=== PATIENT | male | born 1990 | race Caucasian/White ===

== ENCOUNTER 2018-05-23 20:11 | Emergency (ER) | payer SELFPAY ==
[2018-05-23 20:47] VITALS: BP 135/93
--- NOTE | 2018-05-23 20:51 | UC ---
Throat Pain/Nasal Gen HPI - HPI Summary HPI Summary: 28 yo male presents with worsening dysphagia over the last 2 months. He tells me that initially intermittently he would be eating or drinking anything and would get bolus to the back of his throat and have the sensation that he could not swallow it and that he was going to choke - so he would spit it back out. This has been increasingly more constant over the last week. Today he could not eat or drink anything. He tried eating soup for lunch and could not swallow it. He has tried drinking water, but cannot swallow that either. Denies fever, chills, sore throat, pain, SOB, chest pain, abdominal pain, n/v - History of Current Complaint Chief Complaint: UCGeneralIllness Stated Complaint: SORE THROAT Time Seen by Provider: 05/23/18 20:51 Hx Obtained From: Patient Onset/Duration: Gradual Onset Pain Intensity: 0 Pain Scale Used: 0-10 Numeric - Allergies/Home Medications Allergies/Adverse Reactions: Allergies Allergy/AdvReac Type Severity Reaction Status Date / Time TOPICAL ACNE MEDS Allergy Severe Hives Uncoded 05/23/18 20:48 PMH/Surg Hx/FS Hx/Imm Hx - Additional Past Medical History Additional PMH: None - Surgical History Surgical History: None - Family History Known Family History: Positive: None, Cardiac Disease - Maternal Grandmother [place] at age 48, Diabetes, Other - cancer - Social History Occupation: Employed Full-time Lives: With Family Alcohol Use: Rare Substance Use Type: None Smoking Status (MU): Never Smoked Tobacco - Immunization History Most Recent Influenza Vaccination: a few years Most Recent Tetanus Shot: 260 Review of Systems Constitutional: Negative Skin: Negative Eyes: Negative ENT: Negative Respiratory: Negative Cardiovascular: Negative Gastrointestinal: Other - Dysphagia Genitourinary: Negative Neurovascular: Negative Neurological: Negative Psychological: Negative All Other Systems Reviewed And Are Negative: Yes Physical Exam - Summary Physical Exam Summary: GENERAL: Mildly anxious SKIN: No rashes, sores, lesions, or open wounds. HEENT: Throat: Posterior oropharynx without exudates, erythema, or tonsillar enlargement. Uvula midline. NECK: Supple. Nontender. No lymphadenopathy. CHEST: CTAB. No r/r/w. No accessory muscle use. Breathing comfortably and in no distress. CV: RRR. Without m/r/g. Pulses intact. Brisk cap refill. ABDOMEN: Soft. NTTP. No distention or guarding. No CVA tenderness. Bowel sounds present NEURO: Alert. CN II-XII grossly intact. PSYCH: Age appropriate behavior. Triage Information Reviewed: Yes Vital Signs: Initial Vital Signs Temp 98.1 F 05/23/18 20:42 Pulse 55 05/23/18 20:42 Resp 16 05/23/18 20:42 BP 135/93 05/23/18 20:42 Pulse Ox 100 05/23/18 20:42 Vital Signs Reviewed: Yes Throat Pain/Nasal Course/Dx - Course Course Of Treatment: Pt was given water in the clinical course and was unable to swallow it. Given his inability to tolerate po, I have advised him to go to the ED for further evaluation. Pt was agreeable to this. - Differential Dx/Diagnosis Provider Diagnoses: Dysphagia Discharge - Sign-Out/Discharge Documenting (check all that apply): Patient Departure - Discharge Plan Condition: Stable Disposition: HOME-RECOMMEND TO ED Referrals: No Primary Care Phys,NOPCP [Primary Care Provider] - Additional Instructions: Please go to the ER for further evaluation of your dysphagia - Billing Disposition and Condition Condition: STABLE Disposition: Home-Recommend to ED
== END 2018-05-23 21:03 | disposition home health service (06) ==
LOC: UCEAST 20:11
DX: R13.10 Dysphagia, unspecified (principal); Z82.49 Family history of ischemic heart disease and other diseases of the circulatory system; Z83.3 Family history of diabetes mellitus; Z80.9 Family history of malignant neoplasm, unspecified
CPT/HCPCS: 99212; G0463

== ENCOUNTER 2018-05-23 21:22 | Emergency (ER) | payer SELFPAY ==
[2018-05-24 01:15] LABS: ABS Basophils 0.1 10^3/ul (0-0.2); ABS Eosinophils 0.4 10^3/ul (0-0.6); ABS Lymphocytes 3.3 10^3/ul (1.0-4.8); ABS Monocytes 0.4 10^3/ul (0-0.8); ABS Neutrophils 3.1 10^3/ul (1.5-7.7); ABS Nucleated RBC 0 10^3/ul; Eosinophil % 6.1 % (0-6); Hematocrit 43 % (42-52); Mean Corpuscular HGB Conc 33 g/dl (31-36); Mean Corpuscular Hemoglobin 26 pg (27-31); Mean Corpuscular Volume 78 fL (80-94); Mean Platelet Volume 8.4 um3 (7.4-10.4); Nucleated Red Blood Cells % 0.1; Platelet Count 270 10^3/ul (150-450); Red Blood Count 5.48 10^6/ul (4.00-5.40); Red Cell Distribution Width 14 % (10.5-15); White Blood Count 7.4 10^3/ul (3.5-10.8)
--- NOTE | 2018-05-24 01:16 | ED ---
Throat Pain/Nasal Congestion - HPI Summary HPI Summary: This is scribe Blanca Cardona documenting for attending Dr. Gumaro Laboy MD. Pt is a 28 year old M with a chief complaint of not being able to swallow. When it first started around 2 months ago there was no pain and it was more like he wasnt producing enough saliva. Last time he ate was this morning around 7 am when he had blueberries, cantaloupe. He choked on some soup later in the day, said it would not go down. The food goes to the back of the mouth and then he cant get it down. He took one sip of water at [facility] and it hurt too much to swallow. The patient says he has some trouble sleeping, and that he feels like he has SOB when he sleeps. He has no pain currently, his throat does not feel like it is closing, and was fine with eating and drinking yesterday. He also said he has no medical history, and is otherwise perfectly healthy. I, Dr. Laboy, personally performed the services described in this documentation as scribed in my presence and it is both accurate and complete. - History of Current Complaint Chief Complaint: EDGeneral Time Seen by Provider: 05/24/18 01:06 Hx Obtained From: Patient Onset/Duration: Sudden Onset, Lasting Weeks - over 2 months, worse today, Still Present Severity: Severe Associated Signs And Symptoms: Positive: Dysphagia - Allergies/Home Medications Allergies/Adverse Reactions: Allergies Allergy/AdvReac Type Severity Reaction Status Date / Time TOPICAL ACNE MEDS Allergy Severe Hives Uncoded 05/23/18 20:48 PMH/Surg Hx/FS Hx/Imm Hx Previously Healthy: Yes Endocrine/Hematology History: Denies: Hx Diabetes, Hx Thyroid Disease Cardiovascular History: Denies: Hx Hypertension Respiratory History: Denies: Hx Asthma, Hx Chronic Obstructive Pulmonary Disease (COPD) GI History: Denies: Hx Ulcer Infectious Disease History: No Infectious Disease History: Denies: Hx Clostridium Difficile, Hx Hepatitis, Hx Human Immunodeficiency Virus (HIV), Hx of Known/Suspected MRSA, Hx Shingles, Hx Tuberculosis, Hx Known/ Suspected VRE, Hx Known/Suspected VRSA, History Other Infectious Disease, Traveled Outside the [place] in Last 30 Days - Family History Known Family History: Positive: Cardiac Disease - Maternal Grandmother [place] at age 48, Diabetes, Other - cancer - Social History Lives: With Family Alcohol Use: Rare Hx Substance Use: No Substance Use Type: Reports: None Hx Tobacco Use: No Smoking Status (MU): Never Smoked Tobacco Review of Systems Negative: Fever Positive: Other - pain with swallowing All Other Systems Reviewed And Are Negative: Yes Physical Exam - Summary Physical Exam Summary: Appearance: Well-appearing, Well-nourished, lying in bed comfortably Skin: Warm, dry, no obvious rash Eyes: sclera anicteric, no conjunctival pallor ENT: mucous membranes moist, oropharynx appears normal, no erythema Neck: Supple, nontender Respiratory: Clear to auscultation, no signs of respiratory distress Cardiovascular: Normal S1, S2. No murmurs. Normal distal pulses in tibial and radial bilaterally. Abdomen: Soft, nontender, normal active bowel sounds present Musculoskeletal: Normal, Strength/ROM Intact Neurological: A&Ox3, awake and alert, mentation is normal, speech is fluent and appropriate Psychiatric: affect is normal, does not appear anxious or depressed Triage Information Reviewed: Yes Vital Signs On Initial Exam: Initial Vitals Temp Pulse Resp BP Pulse Ox 98.6 F 50 16 136/75 96 05/23/18 21:25 05/23/18 21:25 05/23/18 21:25 05/23/18 21:25 05/23/18 21:25 Vital Signs Reviewed: Yes Diagnostics - Vital Signs Vital Signs Temp Pulse Resp BP Pulse Ox 05/24/18 00:59 97.6 F 50 16 125/70 100 05/23/18 22:58 97.6 F 54 16 124/73 100 05/23/18 21:25 98.6 F 50 16 136/75 96 - Laboratory Result Diagrams: 05/24/18 01:04 05/24/18 01:04 Lab Statement: Any lab studies that have been ordered have been reviewed, and results considered in the medical decision making process. EENT Course/Dx - Course Course Of Treatment: 28-year-old man with a somewhat odd presentation of dysphasia. He has a sense that he cannot get any liquids or solids past the base of his tongue into his retropharynx. I attempted to visualize the area with a kaleidoscope, but was unable to get a very good luck with topical anesthetic. However after this, he seemed better and was able to swallow water without any apparent difficulty. His neck muscles seem to elevate normally during swallowing. I think he can be maintained on clear liquid diet over the weekend and asked him to contact the office of the ENT on-call first thing Saturday, as I think he will need further evaluation of the swelling, probably a fiberoptic's to start. - Diagnoses Provider Diagnoses: Dysphasia Discharge - Sign-Out/Discharge Documenting (check all that apply): Patient Departure - DC - Discharge Plan Condition: Good Disposition: HOME Patient Education Materials: Dysphagia (ED) Referrals: No Primary Care Phys,NOPCP [Primary Care Provider] - Sreekanth Alejandre MD [Medical Doctor] - Additional Instructions: Contact Dr. Alejandre's office first thing Saturday and explain your problem and that you were referred there by the ER. In the meantime stick to clear liquids, nothing solid, only liquids you can see through.
[2018-05-24] MEDS ORDERED: Benzocaine/Butamben/Tetracain* SPRAY TOPICAL ONE (01:17)
[2018-05-24] MEDS ORDERED: Benzocaine/Butamben/Tetracain (CETACAINE - SINGLE USE) 5 gm TOPICAL ONE (01:30)
[2018-05-24 01:32] LABS: EGFR Non-African American 75.5 (>60)
[2018-05-24 02:57] VITALS: BP 136/75
== END 2018-05-24 02:56 | disposition home or self-care (01) ==
LOC: ED 21:22
DX: R13.10 Dysphagia, unspecified (principal); Z88.8 Allergy status to other drugs, medicaments and biological substances; Z82.49 Family history of ischemic heart disease and other diseases of the circulatory system; Z83.3 Family history of diabetes mellitus; Z80.9 Family history of malignant neoplasm, unspecified
CPT/HCPCS: 36415; 80053; 83605; 83735; 85025; A9270-GY

== ENCOUNTER → 2018-10-25 01:54 | Emergency (ER) | payer MEDICAID ==
[~2018-10-25 01:54] MED LIST: ALPRAZolam TAB* 0.5 MG ONE; ALPRAZolam TAB* 0.5 MG PO ONE; LORazepam INJ* 2 MG/ML 1 ML VIAL IM ONE
[2018-10-25 02:54] LABS: ABS Basophils 0.2 10^3/ul (0-0.2); ABS Eosinophils 0.3 10^3/ul (0-0.6); ABS Lymphocytes 2.8 10^3/ul (1.0-4.8); ABS Monocytes 0.5 10^3/ul (0-0.8); ABS Neutrophils 3.4 10^3/ul (1.5-7.7); ABS Nucleated RBC 0 10^3/ul; Eosinophil % 3.9 %; Hematocrit 45 % (42-52); Hemoglobin 14.8 g/dl (14.0-18.0); Lymphocyte % 39.1 %; Mean Corpuscular HGB Conc 33 g/dl (31-36); Mean Corpuscular Hemoglobin 26 pg (27-31); Mean Corpuscular Volume 78 fL (80-94); Mean Platelet Volume 8.6 fL (7.4-10.4); Nucleated Red Blood Cells % 0.1; Platelet Count 277 10^3/ul (150-450); Red Blood Count 5.69 10^6/ul (4.00-5.40); Red Cell Distribution Width 13 % (10.5-15); White Blood Count 7.2 10^3/ul (3.5-10.8)
[2018-10-25 03:08] LABS: Activated Partial Thrombo Time 28.8 seconds (26.0-36.3); INR 0.93 (0.77-1.02)
[2018-10-25 03:10] LABS: Albumin 4.5 g/dL (3.2-5.2); Albumin/Globulin Ratio 1.2 (1-3); BUN/Creatinine Ratio 12.9 (8-20); Calcium 10.1 mg/dL (8.6-10.3); EGFR Non-African American 65.1 (>60); Globulin 3.7 g/dL (2-4); Total Bilirubin 0.4 mg/dL (0.2-1.0); Total Protein 8.2 g/dL (6.4-8.9)
[2018-10-25 03:31] LABS: Potassium 3.8 mmol/L (3.5-5.0)
[2018-10-25 03:36] LABS: TSH (Thyroid Stimulating Horm) 8.05 mcIU/mL (0.34-5.60)
[2018-10-25 06:09] VITALS: BP 132/74
--- NOTE | 2018-10-25 12:47 | ED ---
Syncope/Near Syncope - HPI Summary HPI Summary: A 28 y/o male accompanied by a friend presents to the ED c/o syncopal episode. Currently, the patient feels fine. According to the patient, he is not exactly sure what happened. He stated that he thinks he had a panic attack in his car. 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 He stated that he was on his way home when he just started feeling "crazy", as his heart started beating fast, he was shaking, and he fainted. As per friend, she stated that she saw everything. She noted that the patient wasn't feeling too great, so they pulled off at a nearby gas station and she ended up driving. On the way home, he noted that had passed out, started shaking, coupled with a fast hear beat. He was unconscious for a couple seconds. He had something similar 2 years ago, but it was not as severe. Patient is on no medications. - History Of Current Complaint Chief Complaint: EDSyncope Time Seen by Provider: 10/25/18 02:08 Hx Obtained From: Patient Onset/Duration: Sudden Onset Timing: Seconds - seconds Context: Witnessed Activity At Onset: At Rest Associated Head Trauma: No Aggravating Factor(s): Nothing Alleviating Factor(s): Nothing Associated Signs And Symptoms: Other - FAST HR AND SHAKING - Allergies/Home Medications Allergies/Adverse Reactions: Allergies Allergy/AdvReac Type Severity Reaction Status Date / Time TOPICAL ACNE MEDS Allergy Severe Hives Uncoded 10/25/18 02:01 PMH/Surg Hx/FS Hx/Imm Hx Endocrine/Hematology History: Denies: Hx Diabetes, Hx Thyroid Disease Cardiovascular History: Denies: Hx Hypertension Respiratory History: Denies: Hx Asthma, Hx Chronic Obstructive Pulmonary Disease (COPD) GI History: Denies: Hx Ulcer - Surgical History Surgery Procedure, Year, and Place: none Infectious Disease History: No Infectious Disease History: Denies: Hx Clostridium Difficile, Hx Hepatitis, Hx Human Immunodeficiency Virus (HIV), Hx of Known/Suspected MRSA, Hx Shingles, Hx Tuberculosis, Hx Known/ Suspected VRE, Hx Known/Suspected VRSA, History Other Infectious Disease, Traveled Outside the [place] in Last 30 Days - Family History Known Family History: Positive: Cardiac Disease - Maternal Grandmother [place] at age 48, Diabetes, Other - cancer - Social History Alcohol Use: Rare Hx Substance Use: No Substance Use Type: Reports: None Hx Tobacco Use: No Smoking Status (MU): Never Smoked Tobacco Review of Systems Negative: Fever Positive: Syncope All Other Systems Reviewed And Are Negative: Yes Physical Exam - Summary Physical Exam Summary: VITAL SIGNS: Reviewed. GENERAL: Patient is a well-developed and nourished male who is lying comfortable in the stretcher. Patient is not in any acute respiratory distress. HEAD AND FACE: No signs of trauma. No ecchymosis, hematomas or skull depressions. No sinus tenderness. EYES: PERRLA, EOMI x 2, No injected conjunctiva, no nystagmus. EARS: Hearing grossly intact. Ear canals and tympanic membranes are within normal limits. MOUTH: Oropharynx within normal limits. NECK: Supple, trachea is midline, no adenopathy, no JVD, no carotid bruit, no c- spine tenderness, neck with full ROM. CHEST: Symmetric, no tenderness at palpation LUNGS: Clear to auscultation bilaterally. No wheezing or crackles. CVS: Regular rate and rhythm, S1 and S2 present, no murmurs or gallops appreciated. ABDOMEN: Soft, non-tender. No signs of distention. No rebound no guarding, and no masses palpated. Bowel sounds are normal. EXTREMITIES: FROM in all major joints, no edema, no cyanosis or clubbing. NEURO: Alert and oriented x 3. No acute neurological deficits. Speech is normal and follows commands. SKIN: Dry and warm PSYCH: Anxious Triage Information Reviewed: Yes Vital Signs On Initial Exam: Initial Vitals Temp Pulse Resp BP Pulse Ox 98.3 F 70 18 153/84 97 10/25/18 01:57 10/25/18 01:57 10/25/18 01:57 10/25/18 01:57 10/25/18 01:57 Vital Signs Reviewed: Yes Diagnostics - Vital Signs Vital Signs Temp Pulse Resp BP Pulse Ox 10/25/18 01:57 98.3 F 70 18 153/84 97 - Laboratory Result Diagrams: 10/25/18 02:25 10/25/18 02:25 Lab Statement: Any lab studies that have been ordered have been reviewed, and results considered in the medical decision making process. - EKG 0229 Cardiac Rate: NL - 66 BPM EKG Rhythm: Sinus Rhythm - 66 BPM Summary of EKG Findings: J-point elevation. Course/Dx Course Of Treatment: A 28 y/o male accompanied by a friend presents to the ED c/ o syncopal episode. Physical examination findings significant for patient is anxious. An EKG revealed NSR of 66 BPM, J-point elevation. No significant laboratory abnormalities were found. In the ED course, the patient received Xanax and Ativan. Patient will be discharged with a diagnosis of palpitations and anxiety. Patient is to follow up with primary care provider in 1-2 days. Patient is to return to the ED for any new or worsening symptoms. Patient is agreeable with this plan. - Diagnoses Provider Diagnoses: Palpitations, Anxiety Discharge - Sign-Out/Discharge Documenting (check all that apply): Patient Departure - DISCHARGE - Discharge Plan Condition: Stable Disposition: HOME Prescriptions: ALPRAZolam TAB* [Xanax TAB*] 0.5 mg PO BID PRN #10 tab MDD 2 PRN Reason: Anxiety Patient Education Materials: Heart Palpitations (ED), Anxiety (ED) Forms: *Work Release Referrals: [facility] [Outside] - 2 Days Care [facility] [Outside] - 2 Days Additional Instructions: FOLLOW UP WITH PRIMARY CARE PROVIDER IN 1-2 DAYS. RETURN TO ED FOR ANY NEW OR WORSENING SYMPTOMS. - Attestation Statements Document Initiated by Matildeibe: Yes Documenting Scribe: Crispin Cantrell Provider For Whom Julio Cesar is Documenting (Include Credential): Erika Glover MD Scribe Attestation: Crispin Ascencio, scribed for Erika Glover MD on 10/25/18 at 0408. Status of Scribe Document: Ready
--- OUTSIDE RECORDS SUMMARY | 2018-11-03 10:02 | XMS REPORT | Continuity of Care Document ---
:1990 External Reference #:[id number] Author Name Paulina Epstein Care Team Providers Name Role Phone Fabiano Chung MD Care Team Information [employer] Supervisor Unavailable Payers Type Date Identification Numbers Payment Provider Subscriber Group Name: 1 1 Medicaid [place] PayID: [id number] [address] [place] [address] Advance Directives Description No Information Available Problems Date Description Provider Status Onset: 10/17/2015 Sprain of unspecified ligament of right Fnu MD Darrell Active ankle, subsequent encounter Onset: 10/28/2018 Anxiety state Fabiano Chung MD Active Onset: 10/28/2018 Hypothyroidism Fabiano Chung MD Active Onset: 11/10/2015 Sprain of other ligament of right ankle, Fnu MD Darrell Active subsequent encounter Family History Date Family Member(s) Problem(s) Comments General No Current Problems Social History Type Date Description Comments Sex Unknown 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 No Active 10/17/19 Hx Unknown Medications 16 - 10/28/19 19 Immunizations Description No Information Available Vital Signs Date Vital Result Comment 10/28/2018 2:26pm Height 75 inches 6'3" Weight 221.00 lb Heart Rate 62 /min BP Systolic 128 mmHg BP Diastolic 84 mmHg Respiratory Rate 16 /min Body Temperature 98.2 F Pain Level 0 O2 % BldC Oximetry 98 % BMI (Body Mass Index) 27.6 kg/m2 12/01/2015 1:47pm Weight 252.00 lb Heart Rate 80 /min BP Systolic Sitting 128 mmHg BP Diastolic Sitting 88 mmHg 11/10/2015 1:41pm Height 74 inches 6'2" Weight 260.00 lb Heart Rate 74 /min BP Systolic Sitting 122 mmHg BP Diastolic Sitting 86 mmHg BMI (Body Mass Index) 33.4 kg/m2 10/17/2015 2:25pm Height 74 inches 6'2" Weight 260.00 lb Heart Rate 76 /min BP Systolic Sitting 128 mmHg BP Diastolic Sitting 88 mmHg BMI (Body Mass Index) 33.4 kg/m2 Results Description No Information Available Procedures Description No Information Available Encounters Description No Information Available Plan of Treatment Future Appointment(s):10/30/2018 9:20 am - [facility]2018 - Fabiano Chung [id number] Hypothyroidism, unspecifiedComments :We will repeat thyroid studies in a few weeks.F41.9 Anxiety disorder, unspecifiedComments:Continue the xanax as needed. Follow-up as needed.
--- OUTSIDE RECORDS SUMMARY | 2018-11-03 10:02 | XMS REPORT | Continuity of Care Document ---
:1990 External Reference #:[id number] Author Name Alana Elkins Care Team Providers Name Role Phone Fabiano Chung MD Care Team Information [employer] Taper Unavailable Payers Type Date Identification Numbers Payment Provider Subscriber Group Name: 1 1 Medicaid [place] PayID: [id number] [address] [place] [address] Advance Directives Description No Information Available Problems [...] 9:20 am - Fabiano Chung MD at [facility]10/28/2018 - Fabiano Chung [id number] Hypothyroidism, unspecifiedComments :We will repeat thyroid studies in a few weeks.F41.9 Anxiety disorder, unspecifiedComments:Continue the xanax as needed. Follow-up as needed.
== END | disposition home or self-care (01) ==
LOC: ED 01:54
DX: R00.2 Palpitations (principal); F41.9 Anxiety disorder, unspecified
CPT/HCPCS: 36415; 80053; 83735; 84443; 84484; 85025; 85610; 85730; 93005; 96372; 99283; A9270-GY

== ENCOUNTER 2018-10-26 17:55 | Emergency (ER) | payer MEDICAID ==
[2018-10-26 18:02] VITALS: BP 158/96
--- NOTE | 2018-10-26 18:38 | UC ---
Cardiac HPI - HPI Summary HPI Summary: The patient is a 28-year-old male that states that he has had panic attacks or anxiety attacks for the past year. He describes episodes of carpal pedal spasm as well as perioral paresthesias. During these episodes he has palpitations. He states that yesterday he had a severe panic attack and may have passed out. States his heart was racing and he felt short of breath. He states he was taken to the emergency room and there was evaluated. He was given prescription for Xanax and given an appointment to be rechecked on Saturday. He has not taken any Xanax. He stated that yesterday he was having such severe tremors that he thought he was having a seizure. All this morning his had some vague mild chest discomfort as well as left trapezius pain and tenderness. He states that he was told to get rechecked if he developed any neck or shoulder pain. He elected to come in here tonight just to make sure everything was okay. - History of Current Complaint Chief Complaint: UCChestPain Stated Complaint: CHEST PAIN Time Seen by Provider: 10/26/18 17:57 Hx Obtained From: Patient Onset/Duration: Gradual Onset, Lasting Hours Timing: Constant Initial Severity: Mild Current Severity: Mild Pain Intensity: 3 Chest Pain Location: Discrete at: - across chest and left trapezius Character: Dull/Aching Aggravating Factor(s): Movement - moving neck or using left arm cause discomfort Alleviating Factor(s): Nothing Associated Signs & Symptoms: Positive: Chest Pain, Anxiety, Palpitations - yesterday. Negative: Vision Changes, Recent Stress, Headaches, Numbness, Tingling, Weakness, Dizziness, SOB, Swelling, Syncope, Fever, Diaphoresis, Nausea/Vomiting, Cough, Hemoptysis, Back Pain, Abdominal Pain, Calf Pain/ Swelling - Allergy/Home Medications Allergies/Adverse Reactions: Allergies Allergy/AdvReac Type Severity Reaction Status Date / Time TOPICAL ACNE MEDS Allergy Severe Hives Uncoded 10/25/18 02:01 PMH/Surg Hx/FS Hx/Imm Hx Previously Healthy: Yes - Surgical History Surgical History: None Surgery Procedure, Year, and Place: none - Family History Known Family History: Positive: Cardiac Disease - Maternal Grandmother [place] at age 48, Diabetes, Respiratory Disease, Other - cancer - Social History Alcohol Use: None Substance Use Type: Marijuana - rare Smoking Status (MU): Never Smoked Tobacco - Immunization History Most Recent Influenza Vaccination: a few years Most Recent Tetanus Shot: 260 Review of Systems All Other Systems Reviewed And Are Negative: Yes Constitutional: Positive: Negative Skin: Positive: Negative Eyes: Positive: Negative ENT: Positive: Negative Respiratory: Positive: Negative Cardiovascular: Positive: Chest Pain Gastrointestinal: Positive: Negative Genitourinary: Positive: Negative Motor: Positive: Negative Neurovascular: Positive: Negative Musculoskeletal: Positive: Myalgia Neurological: Positive: Negative Psychological: Positive: Negative Physical Exam Triage Information Reviewed: Yes Appearance: Well-Appearing, No Pain Distress, Well-Nourished Vital Signs: Initial Vital Signs Temp 98.6 F 10/26/18 17:56 Pulse 68 10/26/18 17:56 Resp 18 10/26/18 17:56 BP 158/96 10/26/18 17:56 Pulse Ox 99 10/26/18 17:56 Vital Signs Reviewed: Yes Eyes: Positive: Conjunctiva Clear ENT: Positive: Hearing grossly normal, Uvula midline. Negative: Nasal congestion, Nasal drainage, Tonsillar swelling, Tonsillar exudate, Trismus, Muffled voice, Hoarse voice Dental Exam: Normal Neck: Positive: Supple, Nontender, No Lymphadenopathy, Other: - no thyromegaly Respiratory: Positive: Lungs clear, Normal breath sounds, No respiratory distress, No accessory muscle use Cardiovascular: Positive: RRR, No Murmur, Pulses Normal Abdominal Exam: Normal Bowel Sounds: Positive: Present Musculoskeletal: Positive: Strength Intact, ROM Intact, No Edema Neurological: Positive: Alert, Muscle Tone Normal Psychological Exam: Normal Skin Exam: Normal Diagnostics - EKG Cardiac Rate: NL Cardiac Rhythm: Sinus: Normal Ectopy: None ST Segment: Non-Specific - j point elevation EKG Comparison: No Significant Change - Clinical Impression Provider Diagnosis: Anxiety, Strain of left trapezius muscle Discharge - Sign-Out/Discharge Documenting (check all that apply): Patient Departure All imaging exams completed and their final reports reviewed: No Studies - Discharge Plan Condition: Stable Disposition: HOME Patient Education Materials: Muscle Strain (ED), Anxiety (ED) Referrals: No Primary Care Phys,NOPCP [Primary Care Provider] - Additional Instructions: make appt tomorrow as planned you may take tylenol or advil you may take the anti anxiety med rxed yesterday - Billing Disposition and Condition Condition: STABLE Disposition: Home
== END 2018-10-26 18:45 | disposition home or self-care (01) ==
LOC: UCEAST 17:55
DX: F41.9 Anxiety disorder, unspecified (principal); S29.012A Strain of muscle and tendon of back wall of thorax, initial encounter; X58.XXXA Exposure to other specified factors, initial encounter; Y92.9 Unspecified place or not applicable; Z88.8 Allergy status to other drugs, medicaments and biological substances
CPT/HCPCS: 93005; 99211; G0463

== ENCOUNTER 2018-11-12 14:49 | Emergency (ER) | payer MEDICAID ==
[2018-11-12 15:02] VITALS: BP 155/92
--- NOTE | 2018-11-12 15:57 | UC ---
Cardiac HPI - HPI Summary HPI Summary: 28-year-old male presents with complaints of left-sided chest pain and shortness of breath that started this afternoon. He has had history of anxiety with panic attacks over the past year and has been seen in the emergency room and at this facility in the past for similar complaints. He was most recently seen in the urgent care on 10/26/2018 with complaints of chest pain. He states that he took a Xanax this morning for his anxiety and then later today around noon he took some acetaminophen for dental pain that he has been experiencing over the last 2 days. Chest pain started a short time after he took the acetaminophen and he became concerned that it interacted with his Xanax. He describes the pain as "discomfort". Nonradiating. Associated with some mild shortness of breath. He has appointment with dentist scheduled for Saturday. Denies fever, chills, trismus, palpitations, dizziness, weakness, abdominal pain , nausea, or vomiting. - History of Current Complaint Chief Complaint: UCChestPain Stated Complaint: CHEST PAIN Time Seen by Provider: 11/12/18 15:39 Hx Obtained From: Patient Pain Intensity: 6 - Allergy/Home Medications Allergies/Adverse Reactions: Allergies Allergy/AdvReac Type Severity Reaction Status Date / Time TOPICAL ACNE MEDS Allergy Severe Hives Uncoded 11/12/18 15:01 PMH/Surg Hx/FS Hx/Imm Hx Previously Healthy: Yes Psychological History: Anxiety - w/ panic attacks - Surgical History Surgical History: None Surgery Procedure, Year, and Place: none - Family History Known Family History: Positive: Cardiac Disease - Maternal Grandmother [place] at age 48, Diabetes, Respiratory Disease, Other - cancer - Social History Occupation: Employed Full-time Lives: With Family Alcohol Use: None Substance Use Type: None Smoking Status (MU): Never Smoked Tobacco - Immunization History Most Recent Influenza Vaccination: a few years Most Recent Tetanus Shot: 260 Review of Systems All Other Systems Reviewed And Are Negative: Yes Constitutional: Negative: Fever, Chills Skin: Negative: Rash ENT: Positive: Dental Pain. Negative: Sore Throat, Ear Ache, Nasal Discharge, Sinus Congestion, Sinus Pain/Tenderness Respiratory: Negative: Shortness Of Breath, Cough Cardiovascular: Positive: Chest Pain. Negative: Palpitations Gastrointestinal: Negative: Abdominal Pain, Vomiting, Diarrhea, Nausea Genitourinary: Positive: Negative Musculoskeletal: Positive: Negative Neurological: Positive: Negative Psychological: Positive: Anxious Physical Exam - Summary Physical Exam Summary: GENERAL APPEARANCE: Well developed, well nourished, alert and cooperative, and appears to be in no acute distress. NOSE: No nasal discharge. THROAT: Pharynx normal. No tonsilar inflammation, swelling, exudate, or lesions. Multiple dental caries noted. Significant dental decay of 2nd left lower bicuspid (#20) with mild gingival erythema. No induration, fluctuance, or drainage noted. NECK: Neck supple, non-tender without lymphadenopathy. CARDIAC: Normal S1 and S2. No S3, S4 or murmurs. Rhythm is regular. There is no peripheral edema, cyanosis or pallor. Extremities are warm and well perfused. Capillary refill is less than 2 seconds. LUNGS: Clear to auscultation without rales, rhonchi, wheezing or diminished breath sounds. ABDOMEN: Positive bowel sounds. Soft, nondistended, nontender. No guarding or rebound. No masses or hepatosplenomegally. MUSKULOSKELETAL: ROM intact to all extremities. No joint erythema or tenderness. Normal muscular development. Normal gait. SKIN: Skin normal color, texture and turgor with no lesions or eruptions. PSYCHIATRIC: The patient appears anxious but was able to demonstrate good judgment and reason, without hallucinations, abnormal affect or abnormal behaviors during the examination. Triage Information Reviewed: Yes Vital Signs: Initial Vital Signs Temp 98.1 F 11/12/18 14:54 Pulse 66 11/12/18 14:54 Resp 18 11/12/18 14:54 BP 155/92 11/12/18 14:54 Pulse Ox 100 11/12/18 14:54 Vital Signs Reviewed: Yes Diagnostics - EKG Cardiac Rate: NL Cardiac Rhythm: Sinus: Normal Ectopy: None ST Segment: Normal EKG Comparison: No Significant Change - Compared to EKG from 10/26/2018 - Assessment/Plan Course Of Treatment: 28-year-old male presents with complaints of left-sided chest pain and shortness of breath that started this afternoon. He has had history of anxiety with panic attacks over the past year and has been seen in the emergency room and at this facility in the past for similar complaints. He was most recently seen in the urgent care on 10/26/2018 with complaints of chest pain. He states that he took a Xanax this morning for his anxiety and then later today around noon he took some acetaminophen for dental pain that he has been experiencing over the last 2 days. Chest pain started a short time after he took the acetaminophen and he became concerned that it interacted with his Xanax. He describes the pain as "discomfort". Nonradiating. Associated with some mild shortness of breath. He has appointment with dentist scheduled for Saturday. Denies fever, chills, trismus, palpitations, dizziness, weakness, abdominal pain, nausea, or vomiting. Afebrile. He was noted to be hypertensive otherwise vital signs were stable. Exam revealed an alert adult male in no acute distress. He did appear to be mildly anxious. He was noted have multiple dental caries as well as a significant decaying of the left lower second bicuspid with some mild gingival erythema without induration, fluctuance , or drainage. No trismus. Chest wall was nontender. Normal S1 and S2 without extra heart sounds. Bilateral breath sounds clear. EKG NSR without ectopy, TEDDY , or T-wave changes. Unchanged when compared to EKG from 10/26/2018. I do not suspect that his pain in cardiac in origin. May be related to his anxiety. I will treat him for a possible dental infection with amoxicillin 875 mg BID x 10 days as well as ibuprofen as needed for pain. He is to keep his appointment with the dentist on Saturday. He is to follow up with his PCP within 1 week for recheck of symptoms. Anticipatory guidance and warning symptoms reviewed with patient. Verbalizes understanding and agrees with POC. - Differential Diagnoses - Chest Pain Differential Diagnosis/HQI/PQRI: Acute DE, Chest Wall, GI Disease, Lower Respiratory Infection, Other: - pericarditis, endocarditis - Clinical Impression Provider Diagnosis: Acute chest pain, Pain, dental, Anxiety Discharge - Sign-Out/Discharge Documenting (check all that apply): Patient Departure All imaging exams completed and their final reports reviewed: No Studies - Discharge Plan Condition: Stable Disposition: HOME Prescriptions: Amoxicillin PO (*) [Amoxicillin 875 MG (*)] 875 mg PO BID #20 tab Patient Education Materials: Chest Pain (ED), Toothache (ED) Referrals: Fabiano Chung MD [Primary Care Provider] - 7 Days (Follow up within 7 days for recheck of symptoms.) Additional Instructions: Your EKG in the clinic today was normal. We will start you on an antibiotic to treat you for a possible dental infection. Start amoxicillin 875 mg twice a day for 10 days. Take with food to avoid upset stomach. Be sure to complete the entire course even if feeling better. Take ibuprofen (Advil, Motrin) 600 mg (3 tabs) every 8 hours as needed for pain. Rinse your mouth with a salt water solution after every meal and at bedtime to remove any debris from around the tooth. Keep your appointment with the dentist on Saturday as scheduled. Follow up with your primary care provider within 7 days for recheck of symptoms. I have also given you the number for the [facility] physician referral service to assist you with establishing with a new primary care provider if desired. Seek immediate medical attention in the emergency room if you develop fever greater than 100.5 F, have worsening chest pain, difficulty breathing, severe abdominal pain, persistent vomiting, or any worsening of symptoms. - Billing Disposition and Condition Condition: STABLE Disposition: Home
== END 2018-11-12 16:15 | disposition home or self-care (01) ==
LOC: UCEAST 14:49
DX: R07.89 Other chest pain (principal); K08.89 Other specified disorders of teeth and supporting structures; F41.9 Anxiety disorder, unspecified; Z88.8 Allergy status to other drugs, medicaments and biological substances
CPT/HCPCS: 99212; G0463

== ENCOUNTER 2018-12-06 18:28 | Emergency (ER) | payer MEDICAID, OTHER ==
--- OUTSIDE RECORDS SUMMARY | 2018-12-06 18:54 | XMS REPORT | Continuity of Care Document ---
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 Payers Date Identification Numbers Payment Provider Subscriber Effective: 2018 Policy Number: [id number] [employer] PayID: [id number] [address] [place] [address] Expires: 2018 Policy Number: [id number] Medicaid [employer] Name: 1 1 [address] PayID: [id number] [place] [address] Advance Directives Description No Information Available Problems Date Description Provider Status Onset: 10/17/2015 Sprain of unspecified ligament of right Fnu MD Darrell Active ankle, subsequent encounter Onset: 11/10/2015 Sprain of other ligament of right ankle, Yazu MD Darrell Active subsequent encounter Onset: 10/28/2018 Hypothyroidism Fabiano Chung MD Active Onset: 10/28/2018 Anxiety state Fabiano Chung MD Active Onset: 10/28/2018 Raynaud's disease Fabiano Chung MD Active Onset: 10/28/2018 Esophageal dysmotility Fabiano Chung MD Active Family History Date Family Member(s) Observation Comments General No Current Problems Social History Type Date Description Comments Sex Unknown 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 Amoxicillin Active Capsules 500mg 1 by mouth Unknown 000 three times a day No Active Hx Unknown Medications 016 - 019 Alprazolam Hx Tablets 0.5mg 20tabs 1 tab as Fabiano Chung, 000 - needed bid for 019 anxiety mdd 2 tabs. Immunizations Description No Information Available Vital Signs Date Vital Result Comment 11/26/2018 3:24pm Weight 226.00 lb Heart Rate 66 /min BP Systolic 132 mmHg BP Diastolic 78 mmHg Respiratory Rate 16 /min Pain Level 0 O2 % BldC Oximetry 98 % 11/21/2018 8:57am Heart Rate 64 /min BP Systolic 128 mmHg BP Diastolic 80 mmHg Respiratory Rate 16 /min 10/28/2018 2:26pm Height 75 inches 6'3" Weight [...] BMI (Body Mass Index) 33.4 kg/m2 Results Test Date Facility Test Result H/L Range Note Laboratory test 10/30/2018 [facility] Erythrocyte Sed 5 mm/Hr N 0-14 [address] [place] [address] [phone] Anti Nuclear Antibody 0.2 U 2 Scleroderma AB 10/30/2018 [facility] Scleroderma Ab <0.2 U 3 (SCL70) [address] [place] [address] [phone] Laboratory test 10/30/2018 [facility] Rheumatoid Factor < 10 IU/ mL N <15 [address] [place] [address] [phone] TSH (Thyroid Stim Horm) 3.25 mcIU/mL N 0.34-5.60 Free T4 (Free Thyroxine) 1.13 ng/dL High 0.61-1.12 T3 Total 97 ng/dL N 87-178 1 Copy Result to: Fabiano CHUNG ([id number]) 2 REFERENCE VALUE <=1.0 (Negative) Test Performed by: [facility] [employer] [address] [place] [address] 3 REFERENCE VALUE <1.0 (Negative) Test Performed by: [facility] [employer] [address] [place] [address] 4 Copy Result to: Fabiano CHUNG ([id number]) Procedures Description No Information Available Encounters Type Date Location Provider Dx Diagnosis Office Visit 10/28/2018 [facility] Fabiano Chung MD I73.00 Raynaud's syndrome 2:00p [facility] without gangrene E03.9 Hypothyroidism, unspecified F41.9 Anxiety disorder, unspecified K22.4 Dyskinesia of esophagus Plan of Treatment Future Appointment(s):12/08/2018 8:00 am - Nurse Visit IC at [facility]12/10/2018 8:20 am - Fabiano Chung MD at [facility]12/05 11:15 am - Nurse Visit IC at [facility]11/26/2018 - Fabiano Chung MDF41.0 Panic disorder [episodic paroxysmal anxiety]Comments:Please start to nessaoft. follow-up in 2 weeks. Get the holter monitor.R00.2 Palpitations
--- OUTSIDE RECORDS SUMMARY | 2018-12-06 18:54 | XMS REPORT | Continuity of Care Document ---
:1990 External Reference #:[id number] Author Name Alana Elkins Care Team Providers Name Role Phone Fabiano Chung MD Care Team Information Dental Laboratory Manager Unavailable Payers Date Identification Numbers Payment Provider Subscriber Effective: 2018 Policy Number: [id number] [employer] PayID: [id number] [address] [place] [address] Expires: 2018 Policy Number: [id number] Medicaid [employer] [place] Group Name: 1 1 [address] PayID: [id number] [place] [address] Advance Directives Description No Information Available Problems [...] Patient has never smoked Smoking Status Reviewed: 11/21/18 Patient has never smoked Allergies, Adverse Reactions, Alerts Description No Known Drug Allergies Medications Medication Date Status Form Strength Qnty SIG Indications Ordering Provider Alprazolam Active Tablets 0.5mg 20tabs 1 tab as Fabiano Chung, 000 needed bid for anxiety mdd 2 tabs. Amoxicillin 00/00/0 Active Capsules 500mg 1 by mouth Unknown 000 three times a day No Active Hx Unknown Medications 016 - 019 Immunizations Description No Information Available Vital Signs Date Vital Result Comment 11/21/2018 8:57am Heart Rate 64 /min BP [...] Result H/L Range Note Laboratory test 10/30/2018 [facility] Erythrocyte Sed 5 mm/Hr N 0-14 [address] [place] [address] [phone] Anti Nuclear Antibody 0.2 U 2 Scleroderma AB 10/30/2018 [facility] Scleroderma Ab <0.2 U 3 (SCL70) [address] [place] [address] [phone] Laboratory test 10/30/2018 [facility] Rheumatoid Factor < 10 IU/ mL N <15 [address] [place] [address] [phone] TSH (Thyroid Stim Horm) 3.25 mcIU/mL N 0.34-5.60 Free T4 (Free Thyroxine) 1.13 ng/dL High 0.61-1.12 T3 Total 97 ng/dL N 87-178 1 Copy Result to: Fabiano CHUNG ([id number]) 2 REFERENCE VALUE <=1.0 (Negative) Test Performed by: [address] [address] 3 REFERENCE VALUE <1.0 (Negative) Test Performed by: [facility] - [address] [address] 4 Copy Result to: Fabiano CHUNG ([id number]) Procedures Description No Information Available Encounters Type Date Location Provider Dx Diagnosis Office Visit 10/28/2018 [facility] Fabiano Chung MD I73.00 Raynaud's syndrome 2:00p Clinic [facility] without gangrene E03.9 Hypothyroidism, unspecified F41.9 Anxiety disorder, unspecified K22.4 Dyskinesia of esophagus Plan of Treatment Future Appointment(s):11/27/2018 9:00 am - Fabiano Chung MD at [facility]11/21/2018 - Missy Esparza DOF41.0 Panic disorder [episodic paroxysmal anxiety]Recommendations:I recommend that you start the zoloft. It's okay to take CBD oil along with it. Take the xanax only when you are having a panic attack.R00.2 Palpitations
[2018-12-06] MEDS ORDERED: NS 0.9% 1000 ML** 1,000 ML IV ONE (19:30)
[2018-12-06] MEDS ORDERED: clonazePAM TAB(*) 0.5 MG PO ONE (19:31)
--- NOTE | 2018-12-06 20:02 | ED ---
Complex/Multi-Sys Presentation - HPI Summary HPI Summary: Pt is a 28 y/o male sent from the who presents to the ED c/o tremors. He has a hx of panic attacks that present with tremors and palpitations for the past 2 years. Pt states that he is being treated outpatient for these symptoms, and is prescribed Zoloft and Xanax PRN. He states that he does not believe he has depression or anxiety. Pts last panic attack was 2 weeks ago, during which he had a syncopal episode. He woke up today at 6:00 with full-body tremors which the pt had no control over. He initially thought he was having a seizure but was fully conscious. Pt took .25 mg of Xanax which did not alleviate his sx. He continued to have intermittent tremors throughout the day with palpitations and SOB, and took another .25 mg of Xanax at 14:00 which again did not alleviate his sx. Pt states that Xanax usually immediately relives his symptoms. He denies seeing a therapist. Pt has an EEG scheduled on 12/19/18 to rule out seizures. He denies any recent weight gain or loss. FHx anxiety, depression, panic disorder, and bipolar disorder. He denies any smoking, drug, or alcohol use. - History Of Current Complaint Chief Complaint: EDGeneral Time Seen by Provider: 12/06/18 19:17 Hx Obtained From: Patient, Family/Director [employer] [facility] - Family Onset/Duration: Sudden Onset - 6:00 this morning, Lasting Weeks - 2 years intermittently, Resolved Timing: Intermittent, Lasting: Severity Currently: None Aggravating Factor(s): Nothing Alleviating Factor(s): Nothing Associated Signs And Symptoms: Positive: SOB, Palpitations, Other - tremors Related History: Similar Episode/Diagnosed As: - panic attacks - Allergies/Home Medications Allergies/Adverse Reactions: Allergies Allergy/AdvReac Type Severity Reaction Status Date / Time TOPICAL ACNE MEDS Allergy Severe Hives Uncoded 11/12/18 15:01 Home Medications: Home Medications ALPRAZolam TAB* [Xanax TAB*] 0.25 mg PO BID PRN MDD 2 12/06/18 [History Confirmed 12/06/18] PMH/Surg Hx/FS Hx/Imm Hx Endocrine/Hematology History: Reports: Hx Thyroid Disease Denies: Hx Diabetes Cardiovascular History: Denies: Hx Hypertension Respiratory History: Denies: Hx Asthma, Hx Chronic Obstructive Pulmonary Disease (COPD) GI History: Denies: Hx Ulcer Psychiatric History: Reports: Hx Panic Disorder - Surgical History Surgery Procedure, Year, and Place: none Infectious Disease History: No Infectious Disease History: Denies: Hx Clostridium Difficile, Hx Hepatitis, Hx Human Immunodeficiency Virus (HIV), Hx of Known/Suspected MRSA, Hx Shingles, Hx Tuberculosis, Hx Known/ Suspected VRE, Hx Known/Suspected VRSA, History Other Infectious Disease, Traveled Outside the [place] in Last 30 Days - Family History Known Family History: Positive: Cardiac Disease - Maternal Grandmother [place] at age 48, Diabetes, Respiratory Disease, Other - CA, bipolar disorder, depression , anxiety, panic disorder - Social History Alcohol Use: None Hx Substance Use: No Substance Use Type: Reports: None Hx Tobacco Use: No Smoking Status (MU): Never Smoked Tobacco Review of Systems Negative: Other - weight gain/loss Positive: Palpitations Positive: Shortness Of Breath Neurological: Other - full body tremors All Other Systems Reviewed And Are Negative: Yes Physical Exam - Summary Physical Exam Summary: Appearance: Well appearing, no pain distress Skin: warm, dry, reflects adequate perfusion Head/face: normal Eyes: EOMI, SERA ENT: mucous membranes moist Neck: supple, non-tender Respiratory: CTA, breath sounds present Cardiovascular: RRR, pulses symmetrical Abdomen: non-tender, soft Bowel Sounds: present Musculoskeletal: normal, strength/ROM intact Neuro: normal, sensory motor intact, A&Ox3, no shaking Psych: no anxiety Triage Information Reviewed: Yes Vital Signs On Initial Exam: Initial Vitals Temp Pulse Resp BP Pulse Ox 98.8 F 76 18 141/95 77 12/06/18 18:29 12/06/18 18:29 12/06/18 18:29 12/06/18 18:29 12/06/18 18:29 Vital Signs Reviewed: Yes Diagnostics - Vital Signs Vital Signs Temp Pulse Resp BP Pulse Ox 12/06/18 18:29 98.8 F 76 18 141/95 77 - Laboratory Result Diagrams: 12/06/18 21:18 12/06/18 21:18 Lab Statement: Any lab studies that have been ordered have been reviewed, and results considered in the medical decision making process. Re-Evaluation - Re-Evaluation First Eval Re-Evaluation Time: 22:50 Change: Improved Comment: Pt feels much better and is ready to be discharged. Complex Multi-Symp Course/Dx Course Of Treatment: Nurse's notes reviewed. Patient with a history of panic attacks maintained on home Zoloft and Xanax presents with shaking episodes with full consciousness. The shaking was on both sides of the body. He has upcoming outpatient EEG testing, etc. He was feeling much better here after oral Klonopin. All laboratories are negative. - Diagnoses Differential Diagnoses/HQI/PQRI: Other - Partial complex seizure, anxiety reaction, metabolic Provider Diagnoses: Panic attack Discharge - Sign-Out/Discharge Documenting (check all that apply): Patient Departure - Discharge Patient Received Moderate/Deep Sedation with Procedure: No - Discharge Plan Condition: Improved Disposition: HOME Patient Education Materials: Panic Attack (ED) Forms: *Work Release Referrals: Fabiano Chung MD [Primary Care Provider] - Additional Instructions: Call Dr. Chung on Saturday to schedule prompt follow-up. Have your EEG and other testing done on the as scheduled. Do not drive after having symptoms like those that brought you in. Return if worse, new symptoms, or other concerns. - Billing Disposition and Condition Condition: IMPROVED Disposition: Home - Attestation Statements Document Initiated by Matildeibe: Yes Documenting Scribe: Rebeka Curtis Provider For Whom Julio Cesar is Documenting (Include Credential): Simon Phillips MD Scribe Attestation: Rebeka Ascencio scribed for Simon Phillips MD on 12/07/18 at 0507. Scribe Documentation Reviewed: Yes Provider Attestation: The documentation as recorded by the Rebeka alvarez accurately reflects the service I personally performed and the decisions made by me, Simon Phillips MD Status of Scribsamanta Document: Viewed
[2018-12-06 21:27] LABS: ABS Basophils 0.1 10^3/ul (0-0.2); ABS Eosinophils 0.3 10^3/ul (0-0.6); ABS Lymphocytes 3.4 10^3/ul (1.0-4.8); ABS Monocytes 0.3 10^3/ul (0-0.8); ABS Neutrophils 3.1 10^3/ul (1.5-7.7); ABS Nucleated RBC 0 10^3/ul; Hematocrit 43 % (42-52); Hemoglobin 14.3 g/dl (14.0-18.0); Lymphocyte % 47.4 %; Mean Corpuscular HGB Conc 33 g/dl (31-36); Mean Corpuscular Hemoglobin 25 pg (27-31); Mean Corpuscular Volume 77 fL (80-94); Mean Platelet Volume 8.4 fL (7.4-10.4); Nucleated Red Blood Cells % 0.1; Platelet Count 310 10^3/ul (150-450); Red Blood Count 5.64 10^6/ul (4.00-5.40); Red Cell Distribution Width 13 % (10.5-15); White Blood Count 7.2 10^3/ul (3.5-10.8)
[2018-12-06 21:44] LABS: Albumin 4.6 g/dL (3.2-5.2); Albumin/Globulin Ratio 1.4 (1-3); BUN/Creatinine Ratio 11.4 (8-20); Calcium 9.9 mg/dL (8.6-10.3); EGFR African American 102.5 (>60); EGFR Non-African American 84.7 (>60); Globulin 3.4 g/dL (2-4); Total Bilirubin 0.4 mg/dL (0.2-1.0)
[2018-12-06 22:37] LABS: TSH (Thyroid Stimulating Horm) 3.21 mcIU/mL (0.34-5.60)
[2018-12-06 22:40] LABS: Free T4 1.02 ng/dL (0.61-1.12)
[2018-12-06 22:58] LABS: Potassium 4.2 mmol/L (3.5-5.0)
[2018-12-06 23:01] VITALS: BP 120/70
== END 2018-12-06 22:50 | disposition home or self-care (01) ==
LOC: ED 18:28
DX: F41.0 Panic disorder [episodic paroxysmal anxiety] (principal); R06.02 Shortness of breath; R00.2 Palpitations; R25.1 Tremor, unspecified
CPT/HCPCS: 36415; 80053; 82550; 84439; 84443; 84479; 85025; 99283; A9270-GY

== ENCOUNTER 2019-08-01 13:46 | Emergency (ER) | payer OTHER ==
--- NOTE | 2019-08-01 14:00 | ED ---
HPI Chest Pain - HPI Summary HPI Summary: Pt. is a 29 y.o male who presents to the ER for chest cramping" that occurred today. Pt. states he was doing push ups with he noticed cramping to his left arm , chest and neck. Pt. denies SOB, fever, cough, abd pain, vomiting, hematuria. Pt. notes he has been experiencing muscle cramps over the last few weeks. Past hx of anxiety and is on a low dose of xanax. Pt. denies drug or alcohol use. Denies caffeine use. States he take protein and creatine. Sxs are moderate in severity. No current modifying factors. - History of Current Complaint Chief Complaint: EDChestPainROMI Time Seen by Provider: 08/01/19 13:57 Hx Obtained From: Patient Pain Intensity: 0 - Allergy/Home Medications Allergies/Adverse Reactions: Allergies Allergy/AdvReac Type Severity Reaction Status Date / Time TOPICAL [facility] MEDS Allergy Severe Hives Uncoded 08/01/19 13:55 PMH/Surg Hx/FS Hx/Imm Hx Previously Healthy: Yes Endocrine/Hematology History: Reports: Hx Thyroid Disease Denies: Hx Diabetes Cardiovascular History: Denies: Hx Hypertension Respiratory History: Denies: Hx Asthma, Hx Chronic Obstructive Pulmonary Disease (COPD) GI History: Denies: Hx Ulcer Psychiatric History: Reports: Hx Panic Disorder - Surgical History Surgery Procedure, Year, and Place: none Infectious Disease History: No Infectious Disease History: Denies: Hx Clostridium Difficile, Hx Hepatitis, Hx Human Immunodeficiency Virus (HIV), Hx of Known/Suspected MRSA, Hx Shingles, Hx Tuberculosis, Hx Known/ Suspected VRE, Hx Known/Suspected VRSA, History Other Infectious Disease, Traveled Outside the [place] in Last 30 Days - Family History Known Family History: Positive: Cardiac Disease - Maternal Grandmother [place] at age 48, Diabetes, Respiratory Disease, Other - [place], bipolar disorder, depression , anxiety, panic disorder - Social History Occupation: Employed Full-time Lives: With Family Alcohol Use: None Hx Substance Use: No Substance Use Type: Reports: None Hx Tobacco Use: No Smoking Status (MU): Never Smoked Tobacco Review of Systems Constitutional: Negative Negative: Fever Positive: Other - chest cramping. Negative: Palpitations Respiratory: Negative Negative: Shortness Of Breath, Cough Gastrointestinal: Negative Genitourinary: Negative Positive: Other - muscle cramping Skin: Negative Neurological: Negative Negative: Headache, Weakness, Paresthesia, Numbness All Other Systems Reviewed And Are Negative: Yes Physical Exam Triage Information Reviewed: Yes Vital Signs On Initial Exam: Initial Vitals Temp Pulse Resp BP Pulse Ox 98.7 F 75 16 156/77 98 08/01/19 13:53 08/01/19 13:53 08/01/19 13:53 08/01/19 13:53 08/01/19 13:53 Vital Signs Reviewed: Yes Appearance: Positive: Well-Appearing - Pt. sitting up in bed in NAD. Friend present. Skin: Positive: Warm, Dry Head/Face: Positive: Normal Head/Face Inspection Eyes: Positive: Normal, EOMI, SERA Neck: Positive: Supple, Nontender Respiratory/Lung Sounds: Positive: Clear to Auscultation, Breath Sounds Present Cardiovascular: Positive: Normal, RRR Abdomen Description: Positive: Nontender, Soft Musculoskeletal: Positive: Normal, Strength/ROM Intact Neurological: Positive: Normal, CN Intact II-III Psychiatric: Positive: Affect/Mood Appropriate Procedures - Sedation Patient Received Moderate/Deep Sedation with Procedure: No Diagnostics - Vital Signs Vital Signs Temp Pulse Resp BP Pulse Ox 08/01/19 13:53 98.7 F 75 16 156/77 98 - Laboratory Result Diagrams: 08/01/19 14:13 08/01/19 14:13 Lab Statement: Any lab studies that have been ordered have been reviewed, and results considered in the medical decision making process. Chest Pain Course/Dx - Course Course Of Treatment: Pt. presenting with muscle cramping. He is afebrile. BP initially elevated which improved. ECG done at 1345 shows a sinus rhythm of 68bpm, right axis deviation, early repolarization, similar to prior tracing. Chest xray negative for acute findings per radiology. CBC unremarkable CMP shows mild elevation in creatinine of 1.35 and GFR of 65. Mildly elevated CK of 311. U/A negative for blood or protein. Ordered IV hydration which pt. declined after first unsuccessful attempt. Suspect cramping may be secondary to creatine supplement. Advised pt. to dc and increase fluids. He does have an apt. with PCP on Saturday for recheck. To return to ER if symptoms change or worse. Pt. understands and agrees with plan. - Chest Pain Differential Diagnosis/HQI/PQRI: Acute VA, Chest Wall, GI Disease, Lower Respiratory Infection - Diagnoses Provider Diagnoses: Dehydration, Muscle cramps Discharge ED - Sign-Out/Discharge Documenting (check all that apply): Patient Departure - Discharge Plan Condition: Good Disposition: HOME Patient Education Materials: Dehydration (ED), Muscle Cramp (ED) Referrals: Fabiano Chung MD [Primary Care Provider] - Additional Instructions: Follow up with your PCP next week as scheduled Increase fluids Avoid using protein and creatine supplements Return to ER if symptoms change or worsen - Billing Disposition and Condition Condition: GOOD Disposition: Home - Attestation Statements Provider Attestation: I was available for consult. This patient was seen by the [facility]. The patient was not presented to, seen by, or examined by me. Lionel San MD
[2019-08-01 14:24] LABS: ABS Basophils 0.1 10^3/ul (0-0.2); ABS Eosinophils 0.2 10^3/ul (0-0.6); ABS Monocytes 0.4 10^3/ul (0-0.8); ABS Neutrophils 5.7 10^3/ul (1.5-7.7); Eosinophil % 2.1 %; Hematocrit 44 % (42-52); Hemoglobin 14.7 g/dL (14.0-18.0); Lymphocyte % 23.7 %; Mean Corpuscular HGB Conc 34 g/dL (31-36); Mean Corpuscular Hemoglobin 26 pg (27-31); Mean Corpuscular Volume 77 fL (80-94); Mean Platelet Volume 8.4 fL (7.4-10.4); Platelet Count 277 10^3/uL (150-450); Red Blood Count 5.67 10^6 /uL (4.18-5.48); Red Cell Distribution Width 14 % (10-15); White Blood Count 8.5 10^3/uL (3.5-10.8)
[2019-08-01 15:06] LABS: Albumin 4.4 g/dL (3.2-5.2); Albumin/Globulin Ratio 1.3 (1-3); BUN/Creatinine Ratio 10.7 (8-20); Calcium 9.7 mg/dL (8.6-10.3); EGFR African American 78.8 (>60); EGFR Non-African American 65.2 (>60); Globulin 3.4 g/dL (2-4); Potassium 4.3 mmol/L (3.5-5.0); Total Bilirubin 0.4 mg/dL (0.2-1.0); Total Protein 7.8 g/dL (6.4-8.9)
[2019-08-01] MEDS ORDERED: NS 0.9% 1000 ML** 1,000 ML IV ONE (15:16)
[2019-08-01 15:27] LABS: Urine Appearance Cloudy; Urine Bilirubin Negative (Negative); Urine Blood Negative (Negative); Urine Color Yellow; Urine Glucose Negative (Negative); Urine Ketones Negative (Negative); Urine Nitrite Negative (Negative); Urine Protein Negative (Negative); Urine Specific Gravity 1.018 (1.010-1.030); Urine Urobilinogen Negative (Negative)
[2019-08-01 15:38] LABS: TSH (Thyroid Stimulating Horm) 3.32 mcIU/mL (0.34-5.60)
[2019-08-01 16:16] VITALS: BP 126/77
== END 2019-08-01 16:14 | disposition home or self-care (01) ==
LOC: ED 13:46
DX: E86.0 Dehydration (principal); R25.2 Cramp and spasm; Z88.8 Allergy status to other drugs, medicaments and biological substances
CPT/HCPCS: 36415; 71046; 80053; 81003; 82550; 83735; 84443; 84484; 85025; 93005; 99282